=== PATIENT | female | born 1975 | race Two or more races ===

== ENCOUNTER 2024-12-01 11:34 | Outpatient (REF) | payer OTHER, SELFPAY ==
--- NOTE | ~2024-12-01 | XR_ITS ---
EXAMINATION: XR SHOULDER, RIGHT CLINICAL INFORMATION: AP INTERNAL/EXTERNAL ROTATION,OUTLET VIEW,GRASHEY REVIEW, STRAIN OF MUSCLE COMPARISON: None available. TECHNIQUE: AP external rotation, Grashey, scapular Y, and axillary views of the right shoulder. FINDINGS: No acute cortical disruption or malalignment. No lytic or blastic lesions. Preservation of the joint spaces. XR/XR shoulder RT min 2V IMPRESSION: No acute fracture or dislocation. Negative exam. Electronically signed by: [place] Robles MD 12/01/2024 12:45 PM EDT
--- NOTE | ~2024-12-01 | XR_ITS ---
EXAMINATION: XR CERVICAL SPINE CLINICAL INFORMATION: AP/LAT/OBLIQUES, NECK AND RU EXTREMITY PAIN, RADICULOPATHY COMPARISON: None available. TECHNIQUE: 6 views of the cervical spine, inclusive of flexion and extension views, were obtained. FINDINGS: Craniocervical junction is intact. No acute cortical disruption.. Small marginal osteophyte formation in the anterior C5-6. Grade 1 retrolisthesis C5-6. No lytic or blastic lesion. Upper airway is patent. 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 Electronically signed by: [place] Robles MD 12/01/2024 12:45 PM EDT
--- OUTSIDE RECORDS SUMMARY | 2024-12-01 12:06 | XMS_ITS | Encounter Summary ---
Author Organization [facility] Address [address] [place] [address] Care Team Providers Care Pipe Cleaning Machine Operator Name Role Phone Seth Strauss MD Unavailable [phone] Shaheen Mcgregor MD Primary Care Provider Unavailab le Unknown Pcp, Non [facility] Primary Care Provider Unava ilable Encounter Details Date Type Department Care Team (Late st Contact Info) Description 09/01/2016 Orders Only [facility] [address] [place] [id number] Lillie Simpson MD [address] [place] [id number] Social History Tobacco Use Types Packs/Day Years Used Date Smoking Tobacco: Never Smokeless Tobacco: Never Alcohol Use Standard Drinks/Week Comments No 0 (1 standard drink = 0.6 oz pur e alcohol) Comments No Sex and Gender Information Value Date Recorded Sex Assigned at Not on file Legal Sex Female 1:07 AM EDT Gender Identity Not on file Sexual Orientation Not on file 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 Procedure Name Priority Date/Time Associated Diagnosis Comments CULTURE, URINE, ROUTINE Routine 09/01/2016 12:17 PM EST Urinary frequency VITAMIN D, 25-HYDROXY, TOTAL, IMMUNOASSAY Routine 09/01/2016 10:57 AM EST Hip pain, bilateral URINALYSIS, DIP ONLY STAT (All results called to provider) 09/01/2016 10:57 AM EST Urinary frequency URINALYSIS, MICROSCOPIC WITH REFLEX CULTURE STAT (All results called to provider) 09/01/2016 10:57 AM EST RHEUMATOID FACTOR, SERUM Routine 09/01/2016 10:54 AM EST Hip pain, bilateral documented in this encounter Results * Due to [place] state law, this organization might not be sharing negative HIV tests. * (ABNORMAL) CULTURE, URINE, ROUTINE (09/01/2016 12:17 PM EST) [place] count (Urine) >10,000-<50,00 0 CFU/ml [facility] Bacteria culture (Urine) Mixed Culture, 3 or more organisms present. Repeat if Clinically Indicated.(A) No Growth [facility] 09/01/2016 12:1 7 PM EST 09/01/2016 12:17 PM EST Narrative [facility] - 09/04/2016 9:01 AM EST Patient's primary care provider is: ??N/A Testing performed at: [facility], [address] [place] [address], [id number], Computer Repair Instructor: Chepe Lopez M.D. Lillie Simpson MD LABORATORY Final Resul t [address] [address] DIRECTOR CHEPE LOPEZ M.D. * (ABNORMAL) URINALYSIS, MICROSCOPIC WITH REFLEX CULTURE (09/01/2016 10:57 AM EST) WBC (Urine) NONE SEEN NONE SEEN /HPF [facility] RBC (Urine Sed) 10-15(A) NONE SEEN /HPF [facility] Epithelial cells (Urine sed) FEW NONE SEEN /LPF [facility] Casts (Urine sed) NONE SEEN NONE SEEN /LPF [facility] Crystals (Urine sed) NONE SEEN NONE SEEN /HPF [facility] Bacteria (Urine) TRACE(A) NONE SEEN /HPF [facility] Microscopic observation (Urine sed) MUCOUS /HPF [facility] 09/01/2016 10:5 7 AM EST 09/01/2016 10:57 AM EST Narrative [facility] - 09/01/2016 11:31 AM EST Patient's primary care provider is: ??N/A STAT results called to POOL on 09/01/2016 at 11:31 AM by LIZ. Testing performed at: [facility], [address] [place] [address], [id number], Computer Repair Instructor: Chepe Lopez M.D. Lillie Simpson MD LABORATORY Final Resul t Performing Organization Address [facility] de Phone Number [address] [address] DIRECTOR CHEPE LOPEZ M.D. * (ABNORMAL) VITAMIN D, 25-HYDROXY, TOTAL, IMMUNOASSAY (09/01/2016 10:57 AM EST) VIT D, 25-OH, TOTAL 23(L) >29 ng/mL [facility] Comment: Vitamin D Status ??25-OH Vitamin D: Deficiency: ? <20 ng/mL Insufficiency: ? 20-29 ng/mL Optimal: ?> or = 30 ng/mL 09/01/2016 10:5 7 AM EST 09/01/2016 10:57 AM EST Narrative [facility] - 09/01/2016 12:48 PM EST Patient's primary care provider is: ??N/A Testing performed at: [facility], [address] [place] [address], [id number], Computer Repair Instructor: Chepe Lopez M.D. us Lillie Simpson MD LABORATORY Final Resul t Performing Organization Address [facility] de Phone Number [address] [address] DIRECTOR CHEPE LOPEZ M.D. * (ABNORMAL) URINALYSIS, DIP ONLY ( SITE STAT ONLY) (09/01/2016 10:57 AM EST) Color (Urine) Yellow Yellow [facility] Clarity (Urine) Clear Clear [facility] Glucose (Urine) Negative Negative [facility] Bilirubin (Urine) Negative Negative [facility] Ketones (Urine) Trace(A) Negative [facility] Specific gravity (Urine) 1.025 1.005 - 1.030 [facility] Erythrocytes (Urine) 2+(A) Negative [facility] pH (Urine) 5.5 5.0 - 8.0 [facility] Protein (Urine) Negative Negative [facility] Urobilinogen (Urine) 0.2 E.U./dL 0.0 - 1.0 EU/dl [facility] Nitrite (Urine) Negative Negative [facility] Leukocyte esterase (Urine) Negative Negative [facility] Urine specimen (specimen) 09/01/2016 10:57 AM EST 09/01/2016 10:57 AM EST Narrative [facility] - 09/01/2016 11:13 AM EST Patient's primary care provider is: ??N/A STAT results called to POOL on 09/01/2016 at 11:13 AM by LIZ. Source: Urine Testing performed at: [facility], [address] [place] [address], [id number], Computer Repair Instructor: Chepe Lopez M.D. us Lillie Simpson MD LAB SAME DAY RESULT Final R esult [address] [address] DIRECTOR CHEPE LOPEZ M.D. * RHEUMATOID FACTOR, SERUM (09/01/2016 10:54 AM EST) Rheumatoid Factor (Quant) 10 <14 IU/mL [facility] 09/01/2016 10:5 4 AM EST 09/01/2016 3:39 PM EST Narrative Resulting Agency Comment [id number] Lillie Simpson MD LABORATORY Final Resul t [facility] [address] [place] [address] documented in this encounter Visit Diagnoses Diagnosis Urinary frequency Hip pain, bilateral Pain in joint, pelvic region and thigh documented in this encounter Care Teams Pipe Cleaning Machine Operator Relationship Specialty Start Date End Date Shaheen Mcgregor MD PCP - General Family Medicine 12/10/15 09/07/21 Unknown Pcp, Non [facility] [place] - General 09/08/21 Seth Strauss MD 12/12/14 documented as of this encounter
--- OUTSIDE RECORDS SUMMARY | 2024-12-01 12:07 | XMS_ITS | Encounter Summary ---
Author Organization [facility] Address [address] [place] [address] Care Team Providers Care President & Founder Name Role Phone Seth Strauss MD Primary Care Provider [phone] Seth Strauss MD Unavailable [phone] Shaheen Mcgregor MD Primary Care Provider Unavailab le Unknown Pcp, Non [facility] Primary Care Provider Unava ilable Encounter Details Date Type Department Care Team (Late st Contact Info) Description 06/25/2015 Orders Only [facility] [address] [place] [phone] Seth Strauss MD [place]/[address] [address] Social History Tobacco Use Types Packs/Day Years Used Date Smoking Tobacco: Never Smokeless Tobacco: Never Alcohol Use Standard Drinks/Week Comments No 0 (1 standard drink = 0.6 oz pur e alcohol) Comments No Sex and Gender Information Value Date Recorded Sex Assigned at Not on file Legal Sex Female 1:07 AM EDT Gender Identity Not on file Sexual Orientation Not on file documented as of this encounter Plan of Treatment Not on file documented as of this encounter Visit Diagnoses Not on filedocumented in this encounter Care Teams President & Founder Relationship Specialty Start Date End Date Seth Strauss MD PCP - General Internal Medicine 12/12/14 12/09/15 Shaheen Mcgregor MD PCP - General Family Medicine 12/10/15 09/07/21 Unknown Pcp, Non [facility] PCP - General 09/08/21 Seth Strauss MD 12/12/14 documented as of this encounter
--- OUTSIDE RECORDS SUMMARY | 2024-12-01 12:07 | XMS_ITS | Encounter Summary ---
Author Organization [facility] Address [address] [place] [address] Care Team Providers Care Powertrain Engineer Name Role Phone Seth Strauss MD Unavailable [phone] Shaheen Mcgregor MD Primary Care Provider Unavailab le Unknown Pcp, Non [facility] Primary Care Provider Unava ilable Encounter Details Date Type Department Care Team (Late st Contact Info) Description 06/08/2017 Orders Only [address] [address] Shaheen Mcgregor MD Social History Tobacco Use Types Packs/Day Years [...] of this encounter Procedures * Due to [place] state law, this organization might not be sharing negative HIV tests. Procedure Name Priority Date/Time Associated Diagnosis Comments STREP GROUP A AG, RAPID, WITHOUT REFLEX (OBTAIN IN [facility] LAB ONLY!!!) Routine 06/08/2017 2:37 PM EST Left cervical lymphadenopathy MONONUCLEOSIS SCREEN (HETEROPHILE) Routine 06/08/2017 2:37 PM EST Left cervical lymphadenopathy CBC INCLUDES DIFFERENTIAL AND PLATELET COUNT Routine 06/08/2017 2:37 PM EST Left cervical lymphadenopathy documented in this encounter Results * Due to [place] state law, this organization might not be sharing negative HIV tests. * STREP GROUP A AG, RAPID, WITHOUT REFLEX (OBTAIN IN [facility] LAB ONLY!!!) (06/08/2017 2:37 PM EST) Streptococcus pyogenes Ag (Throat) Negative for Gr A NEG FOR GR. A STREP [facility] 06/08/2017 2:37 PM EST 06/08/2017 2:37 PM EST Narrative [facility] - 06/08/2017 3:00 PM EST non fasting Patient's primary care provider is: ??N/A Testing performed at: [facility], [address] [place] [address], [id number], Architect Naval: Chepe Lopez M.D. Shaheen Mcgregor MD LAB SAME DAY RESULT Final Result Performing Organization Address [facility] de Phone Number [address] [address] DIRECTOR CHEPE LOPEZ M.D. * MONONUCLEOSIS SCREEN (HETEROPHILE) (06/08/2017 2:37 PM EST) MONOTEST Negative Negative [facility] 06/08/2017 2:37 PM EST 06/08/2017 2:37 PM EST Narrative [facility] - 06/08/2017 3:34 PM EST non fasting Patient's primary care provider is: ??N/A Testing performed at: [facility], [address] [place] [address], [address], Architect Naval: Chepe Lopez M.D. Shaheen Mcgregor MD LAB SAME DAY RESULT Final Result Performing Organization Address [facility] de Phone Number [address] [address] DIRECTOR CHEPE LOPEZ M.D. * (ABNORMAL) CBC INCLUDES DIFFERENTIAL AND PLATELET COUNT (06/08/2017 2:37 PM EST) WBC 6.1 3.8 - 10.8 K/uL [facility] Neutrophils # 2.8 1.5 - 7.8 K/uL [facility] Immature Granulocytes # 0.01 0.00 - 0.07 K/uL [facility] Comment:Cells included in IM M GRANS # : Metamyelocytes, Myelocytes and Promyelocytes. Lymphocytes # 2.4 0.9 - 3.9 K/uL [facility] Monocytes # 0.8 0.2 - 1.0 K/uL [facility] Eosinophils # 0.1 0.0 - 0.5 K/uL [facility] Basophils # 0.0 0.0 - 0.2 K/uL [facility] Neutrophils % 46.1 % [facility] Immature Granulocytes % 0.20 % [facility] Comment:Cells included in IM M GRANS % : Metamyelocytes, Myelocytes and Promyelocytes. Lymphocytes % 39.8 % [facility] Monocytes % 12.6 % [facility] Eosinophils % 1.0 % [facility] Basophils % 0.3 % [facility] RBC 5.09 3.80 - 5.10 M/uL [facility] Hemoglobin 13.1 11.7 - 15.5 g/dL [facility] Hematocrit 40.6 35.0 - 45.0 % [facility] MCV 79.8(L) 80.0 - 100.0 fl [facility] MCH 25.7(L) 27.0 - 33.0 pg [facility] MCHC 32.3 32.0 - 36.0 g/dL [facility] RDW 15.7(H) 11.0 - 15.0 % [facility] PLT 265 140 - 400 K/uL [facility] 06/08/2017 2:37 PM EST 06/08/2017 2:37 PM EST Narrative [facility] - 06/08/2017 3:25 PM EST non fasting Patient's primary care provider is: ??N/A Testing performed at: [facility], [address] [place], [address], Architect Naval: Chepe Lopez M.D. Shaheen Mcgregor MD LAB SAME DAY RESULT Final Result Performing Organization Address City/State/[facility] de Phone Number [address] [address] DIRECTOR CHEPE LOPEZ M.D. documented in this encounter Visit Diagnoses Diagnosis Left cervical lymphadenopathy Enlargement of lymph nodes documented in this encounter Care Teams Powertrain Engineer Relationship Specialty Start Date End Date Shaheen Mcgregor MD PCP - General Family Medicine 12/10/15 09/07/21 Unknown Pcp, Non [facility] [place] PCP - General 09/08/21 Seth Strauss MD 12/12/14 documented as of this encounter
--- OUTSIDE RECORDS SUMMARY | 2024-12-01 12:07 | XMS_ITS | Encounter Summary ---
Author Organization [facility] Address [address] [place] [address] Care Team Providers Care Interior Designer Name Role Phone Seth Strauss MD Unavailable [phone] Shaheen Mcgregor MD Primary Care Provider Unavailab le Unknown Pcp, Non [facility] Primary Care Provider Unava ilable Encounter Details Date Type Department Care Team (Late st Contact Info) Description 09/08/2018 Orders Only [facility] LIME SPREADER [address] [place] [phone] Henry Engle MD [address] [place] [phone] Social History Tobacco Use Types Packs/Day Years [...] on file documented as of this encounter Progress Notes * Kalli Pereyra LPN - 09/12/2018 3:43 PM EST Normal test result note sent to [facility]. * Kalli Pereyra LPN - 09/08/2018 2:38 PM EST Sent to MD for review. Pt had her US today. Will inform pt of all results at the same time. documented in this encounter Miscellaneous Notes * Letter - Henry Engle MD - 09/08/2018 12:59 PM EST Sep 08, 2018 Manju [id number] [address] [facility], [address] Dear Manju ENGLE MD has ordered the following lab tests: CBC INCLUDES DIFFERENTIAL AND PLATELET COUNT Lab test THYROID STIMULATING HORMONE (TSH) WITH FREE T4 REFLEX, SERUM The results of this testing will help us monitor you more closely. You may have these tests performed at any of the [facility] labs, anytime during the hours of normal operation. A specific appointment day or time is no longer required. Please bring this letter with you to the lab. Please have these labs completed as soon as possible. Note that to the extent you have not had these labs completed after a period of 18 months, the orders will be canceled, in which case you should follow up with your healthcare provider(s) if you have questions. If you have recently been to the laboratory and had these studies performed, please disregard this letter. Sincerely, [facility] documented in this encounter Plan of Treatment Not on file documented as of this encounter Procedures * Due to [place] state law, this organization might not be sharing negative HIV tests. Procedure Name Priority Date/Time Associated Diagnosis Comments CBC INCLUDES DIFFERENTIAL AND PLATELET COUNT Routine 09/08/2018 10:45 AM EST Menorrhagia with regular cycle HCG, TOTAL, QL Routine 09/08/2018 10:45 AM EST Menorrhagia with regular cycle THYROID STIMULATING HORMONE (TSH) WITH FREE T4 REFLEX, SERUM Routine 09/08/2018 10:45 AM EST Menorrhagia with regular cycle documented in this encounter Results * Due to [place] state law, this organization might not be sharing negative HIV tests. * (ABNORMAL) CBC INCLUDES DIFFERENTIAL AND PLATELET COUNT (09/08/2018 10:45 AM EST) WBC 7.7 3.8 - 10.8 K/uL [facility] Neutrophils # 4.1 1.5 - 7.8 K/uL [facility] Immature Granulocytes # 0.0 0.0 - 0.1 K/uL [facility] Lymphocytes # 2.9 0.9 - 3.9 K/uL [facility] Monocytes # 0.6 0.2 - 1.0 K/uL [facility] Eosinophils # 0.1 0.0 - 0.5 K/uL [facility] Basophils # 0.0 0.0 - 0.2 K/uL [facility] Neutrophils % 53.2 % [facility] Immature Granulocytes % 0.10 % [facility] Lymphocytes % 37.1 % [facility] Monocytes % 8.0 % [facility] Eosinophils % 1.3 % [facility] Basophils % 0.3 % [facility] RBC 4.86 3.80 - 5.10 M/uL [facility] Hemoglobin 12.5 11.7 - 15.5 g/dL [facility] Hematocrit 39.7 35.0 - 45.0 % [facility] MCV 81.7 80.0 - 100.0 fl [facility] MCH 25.7(L) 27.0 - 33.0 pg [facility] MCHC 31.5(L) 32.0 - 36.0 g/dL [facility] RDW 14.9 11.0 - 15.0 % [facility] PLT 266 140 - 400 K/uL [facility] 09/08/2018 10:4 5 AM EST 09/08/2018 10:45 AM EST Narrative [facility] - 09/08/2018 11:38 AM EST non fasting Patient's primary care provider is: ??N/A Testing performed at: [facility], [address] [place] [address], [address], Administrative Specialist: Seth Vang MD Henry Engle MD LAB SAME DAY RESULT Fin al Result Performing Organization Address [facility] Co de Phone Number [address] [address] DIRECTOR Seth Vang MD * THYROID STIMULATING HORMONE (TSH) WITH FREE T4 REFLEX, SERUM (09/08/2018 10:45 AM EST) TSH (Thyrotropin) 1.17 0.40 - 4.50 uIU/ml [facility] 09/08/2018 10:4 5 AM EST 09/08/2018 10:45 AM EST Narrative [facility] - 09/08/2018 1:41 PM EST non fasting Patient's primary care provider is: ??N/A Testing performed at: [facility], [address] [place] [address], [address], Administrative Specialist: Seth Vang MD us Henry Engle MD LABORATORY Final R esult Performing Organization Address [facility] de Phone Number [address] [address] DIRECTOR Seth Vang MD * HCG, TOTAL, QL (09/08/2018 10:45 AM EST) HCG, Qualitative (Screen) Negative Negative [facility] 09/08/2018 10:4 5 AM EST 09/08/2018 10:45 AM EST Narrative [facility] - 09/08/2018 1:53 PM EST non fasting Patient's primary care provider is: ??N/A Testing performed at: [facility], [address] [place] [address], [address], Administrative Specialist: Seth Vang MD us Henry Engle MD LAB SAME DAY RESULT Fin al Result Performing Organization Address [facility] Co de Phone Number [address] [place] [address] DIRECTOR Seth Vang MD documented in this encounter Visit Diagnoses Diagnosis Menorrhagia with regular cycle Excessive or frequent menstruation documented in this encounter Care Teams Interior Designer Relationship Specialty Start Date End Date Shaheen Mcgregor MD PCP - General Family Medicine 12/10/15 09/07/21 Unknown Pcp, Non [facility] PCP - General 09/08/21 Seth Strauss MD 12/12/14 documented as of this encounter
--- OUTSIDE RECORDS SUMMARY | 2024-12-01 12:07 | XMS_ITS | Encounter Summary ---
Author Organization [facility] Address [address] [place] [address] Care Team Providers Care Homicide Detective Name Role Phone Seth Strauss MD Unavailable [phone] Shaheen Mcgregor MD Primary Care Provider Unavailab le Unknown Pcp, Non [facility] Primary Care Provider Unava ilable Reason for Referral * OUTPT PROCEDURES AND DIAGNOSTICS (Routine) - New Request Specialty Diagnoses / Procedures Referred By Prince shultz Referred To Contact Ultrasound Diagnoses Mass of left side of neck Left neck mass, presumably lymph node. No improvement with antibiotics. Procedures REQUEST FOR ULTRASOUND NON-FC NECK ULTRASOUND Shaheen Mcgregor MD [facility] Referral ID Status Reason Start Date Expiration Date Visits Requested Visits Authorized [id number] New Request Specialty Services Required 7 1 1 Encounter Details Date Type Department Care Team (Late st Contact Info) Description 06/24/2017 Orders Only [facility] Adult Medicine [address] [place] [phone] Shaheen Mcgregor MD Social History Tobacco Use [...] as of this encounter Plan of Treatment Scheduled Orders Name Type Priority Associated Diagnoses Orde r Schedule REQUEST FOR ULTRASOUND NON-FC Imaging Routine Mass of left side of neck Ordered: 06/24/2017 documented as of this encounter Visit Diagnoses Diagnosis Mass of left side of neck Swelling, mass, or lump in head and neck documented in this encounter Care Teams Homicide Detective Relationship Specialty Start Date End Date Shaheen Mcgregor MD PCP - General Family Medicine 12/10/15 09/07/21 Unknown Pcp, [place] [facility] [place] - General 09/08/21 Seth Strauss MD 12/12/14 documented as of this encounter
--- OUTSIDE RECORDS SUMMARY | 2024-12-01 12:07 | XMS_ITS | Encounter Summary ---
Author Organization [facility] Address [address] [place] [address] Care Team Providers Care Medical Technologist Prn Name Role Phone Seth Strauss MD Unavailable [phone] Shaheen Mcgregor MD Primary Care Provider Unavailab le Unknown Pcp, Non [facility]mg Primary Care Provider Unava ilable Encounter Details Date Type Department Care Team (Late st Contact Info) Description 05/28/2017 Orders Only [address] [address] Shaheen Mcgregor MD Social History Tobacco Use [...] Procedure Name Priority Date/Time Associated Diagnosis Comments EKG-TO BE READ & BILLED BY ADULT OR PEDIATRIC CARDIOLOGY Routine 05/28/2017 9:43 AM EDT Atypical chest pain CBC (H/H, RBC, INDICES,WBC, PLT) Routine 05/28/2017 7:53 AM EDT Screening for deficiency anemia LIPID PANEL WITH REFLEX TO DIRECT LDL Routine 05/28/2017 7:53 AM EDT Screening for lipid disorders BASIC METABOLIC PANEL WITH (GFR) Routine 05/28/2017 7:53 AM EDT Screening for diabetes mellitus documented in this encounter Results * Due to [place] state law, this organization might not be sharing negative HIV tests. * EKG-TO BE READ AND BILLED BY CARDIOLOGY (05/28/2017 9:43 AM EDT) VENTRICULAR RATE 84 BPM MUS E EKG SYSTEM ATRIAL RATE 84 BPM MUSE EKG SYSTEM P-R INTERVAL 108 ms MUSE EK G SYSTEM QRS DURATION 76 ms MUSE EK G SYSTEM QT 364 ms MUSE EKG SYSTEM QTC 430 ms MUSE EKG SYSTEM P AXIS 29 degrees MUSE EKG SYSTEM R AXIS 49 degrees MUSE EKG SYSTEM T AXIS 31 degrees MUSE EKG SYSTEM EKG INTERPRETATION Sinus rhythm with sinus arrhythmia with short FL Otherwise normal ECG No previous ECGs available MUSE EKG SYSTEM 05/28/2017 9:43 AM EDT 05/31/2017 7:56 AM EST us Shaheen Mcgregor MD CARDIOVASCULAR-WITH INBSKT RTG F inal Result MUSE EKG SYSTEM * (ABNORMAL) CBC (H/H, RBC, INDICES,WBC, PLT) (05/28/2017 7:53 AM EDT) WBC 6.6 3.8 - 10.8 K/uL [facility] RBC 5.12(H) 3.80 - 5.10 M/uL [facility] Hemoglobin 13.3 11.7 - 15.5 g/dL [facility] Hematocrit 41.1 35.0 - 45.0 % [facility] MCV 80.3 80.0 - 100.0 fl [facility] MCH 26.0(L) 27.0 - 33.0 pg [facility] MCHC 32.4 32.0 - 36.0 g/dL [facility] RDW 16.4(H) 11.0 - 15.0 % [facility] PLT 241 140 - 400 K/uL [facility] 05/28/2017 7:53 AM EDT 05/28/2017 7:53 AM EDT Narrative [facility] - 05/28/2017 9:16 AM EDT fasting Patient's primary care provider is: ??N/A Testing performed at: [facility], [address] [place] [address], [id number], [employer] Consultant: Chepe Lopez M.D. Shaheen Mcgregor MD LAB SAME DAY RESULT Final Result Performing Organization Address [facility] de Phone Number [address] [address] DIRECTOR CHEPE LOPEZ M.D. * BASIC METABOLIC PANEL WITH (GFR) (05/28/2017 7:53 AM EDT) Pathologist [facility] Glucose 91 65 - 99 mg/dl [facility] Urea Nitrogen Blood (BUN) 11 7 - 25 mg/dL [facility] Creatinine 0.81 0.50 - 1.16 mg/dL [facility] Sodium 143 136 - 145 mmo/L [facility] Potassium 4.8 3.5 - 5.3 mmol/L [facility] Chloride 103 98 - 107 mmo/L [facility] Carbon dioxide 27 23 - 33 mmol/L [facility] Calcium 9.6 8.5 - 10.4 mg/dL [facility] GFR 83 >60 ml/min [facility] Comment:If the patient is Af rican [place], please multiply result by 1.210 05/28/2017 7:53 AM EDT 05/28/2017 7:53 AM EDT Narrative [facility] - 05/28/2017 10:32 AM EDT fasting Patient's primary care provider is: ??N/A Testing performed at: [facility], [address] [place] [address], [id number], [employer] Consultant: Chepe Lopez M.D. Shaheen Mcgregor MD LABORATORY Final Result Performing Organization Address [facility] Co de Phone Number [address] [address] DIRECTOR CHEPE LOPEZ M.D. * LIPID PANEL WITH REFLEX TO DIRECT LDL (05/28/2017 7:53 AM EDT) Cholesterol 189 <200 mg/dL [facility] Triglyceride 66 <150 mg/dL [facility] HDL Cholesterol 57 >40 mg/dL [facility] Comment: NCEP GUIDELINES Desireable >60 mg/dL Borderline 40-59 mg/dL ?? Undesirable <40 mg/dL LDL Cholesterol 119 <130 mg/dL [facility] CHOL/HDL Ratio 3 0 - 5 CALC [facility] 05/28/2017 7:53 AM EDT 05/28/2017 7:53 AM EDT Narrative [facility] - 05/28/2017 10:32 AM EDT fasting Patient's primary care provider is: ??N/A Testing performed at: [facility], [address] [place] [address], [address], [employer] Consultant: Chepe Lopez M.D. Shaheen Mcgregor MD LABORATORY Final Result Performing Organization Address City/State/[facility] Co de Phone Number [address] [address] DIRECTOR CHEPE LOPEZ M.D. documented in this encounter Visit Diagnoses Diagnosis Screening for lipid disorders Screening for diabetes mellitus Screening for deficiency anemia Screening for other and unspecified deficiency anemia Atypical chest pain Other chest pain documented in this encounter Care Teams Medical Technologist Prn Relationship Specialty Start Date End Date Shaheen Mcgregor MD PCP - General Family Medicine 12/10/15 09/07/21 Unknown Pcp, Non g PCP - General 09/08/21 Seth Strauss MD 12/12/14 documented as of this encounter
--- OUTSIDE RECORDS SUMMARY | 2024-12-01 12:07 | XMS_ITS | Encounter Summary ---
Author Organization [facility] Address [address] [place] [address] Care Team Providers Care Inspector Plating Name Role Phone Seth Strauss MD Unavailable [phone] Shaheen Mcgregor MD Primary Care Provider Unavailab le Unknown Pcp, Non [facility]mg Primary Care Provider Unava ilable Encounter Details Date Type Department Care Team (Late st Contact Info) Description 08/23/2018 Orders Only [facility] SUPERVISOR EDGING [address] [place] [phone] Henry Engle MD [address] [place] [phone] Social History Tobacco Use Types Packs/Day [...] Progress Notes * Kalli Pereyra LPN - 08/29/2018 4:55 PM EST Normal pap letter sent to pt, problem list updated. documented in this encounter Plan of Treatment Not on file documented as of this encounter Procedures * Due to [place] state law, this organization might not be sharing negative HIV tests. Procedure Name Priority Date/Time Associated Diagnosis Comments THINPREP TIS PAP, HPV MRNA E6/E7 RFX HPV 16,18/45, CT/NG Routine 08/23/2018 5:11 PM EST Cervical cancer screening Family planning advice documented in this encounter Results * Due to [facility] law, this organization might not be sharing negative HIV tests. * THINPREP TIS PAP, HPV MRNA E6/E7 RFX HPV 16,18/45, CT/NG (08/23/2018 5:11 PM EST) Clinical information None given [facility] Date last menstrual period NONE GIVEN [facility] Date of previous PAP smear NONE GIVEN [facility] Date of previous biopsy NONE GIVEN [facility] Specimen source (Cvx/Vag) Vagina, Cervix, Endocervix [facility] Statement of Adequacy (Cvx/Vag) Satisfactory for evaluation. Endocervical/sánchez sformation zone component present. Age and/or menstrual status not provided [facility] Cytology, Pap Smear Negative for intraepithelial lesion or malignancy. [facility] Cytology study comment (Cvx/Vag) This Pap test has been evaluated with computer assisted technology. [facility] Formulation Scientist (Cvx/Vag) [facility] CT screening location: [place] [address] [facility] Formulation Scientist (Cvx/Vag) [place], CT(ASCP) CT screening location: [place] [address] [facility] COMMENT SEE NOTE [facility] Comment: EXPLANATORY NOTE: The Pap is a screening test for cervical cancer. It is not a diagnostic test and is subject to false negative and false positive results. It is most reliable when a satisfactory sample, regularly obtained, is submitted with relevant clinical findings and history, and when the Pap result is evaluated along with historic and current clinical information. HPV MRNA E6/E7 Not Detected Not Detected [facility] Comment: This test was performed using the APTIMA HPV Assay ([employer] This assay detects E6/E7 viral messenger RNA (mRNA) from 14 high-risk HPV types (16,18,31,33,35,39,45,51,52,56,58,59,66,68). The analytical performance characteristics of this assay have been determined by [employer]. The modifications have not been cleared or approved by the FDA. This assay has been validated pursuant to the CLIA regulations and is used for clinical purposes. Chlamydia trachomatis rRNA NOT DETECTED NOT DETECTED [facility] Neisseria Gonorrhoeae rRNA NOT DETECTED NOT DETECTED [facility] COMMENT SEE NOTE [facility] Comment: This test was performed using the APTIMA COMBO2 Assay ([employer] The analytical performance characteristics of this assay, when used to test SurePath specimens have been determined by [employer]. 08/23/2018 5:11 PM EST 08/23/2018 10:14 PM EST Narrative Resulting Agency Comment [id number] Henry Engle MD PATHOLOGY-INTERFACED Fi nal Result Performing Organization Address City/State/[facility] Co de Phone Number [facility] [address] [place] [address] documented in this encounter Visit Diagnoses Diagnosis Cervical cancer screening Screening for malignant neoplasm of the cervix Family planning advice Other general counseling and advice for contraceptive management documented in this encounter Care Teams Inspector Plating Relationship Specialty Start Date End Date Shaheen Mcgregor MD PCP - General Family Medicine 12/10/15 09/07/21 Unknown Pcp, Non [facility] PCP - General 09/08/21 Seth Strauss MD 12/12/14 documented as of this encounter
--- OUTSIDE RECORDS SUMMARY | 2024-12-01 12:07 | XMS_ITS | Encounter Summary ---
Author Organization [facility] Address [address] [place] [address] Care Team Providers Care Rn Clinician Name Role Phone Seth Strauss MD Unavailable [phone] Shaheen Mcgregor MD Primary Care Provider Unavailab le Unknown Pcp, Non Rmg Primary Care Provider Unava ilable Encounter Details Date Type Department Care Team (Late st Contact Info) Description 05/19/2018 Orders Only [facility] Orthopedic Surgery [address] [place] [id number] Artem Cash MD Social History Tobacco Use Types Packs/Day Years Used Date Smoking Tobacco: Never Smokeless Tobacco: Never Alcohol Use Standard Drinks/Week Comments No 0 (1 standard drink = 0.6 oz pur e alcohol) Comments Unknown Sex and Gender Information Value Date Recorded [...] Type Priority Associated Diagnoses Orde r Schedule XRAY SHOULDER COMPLETE MIN 2 VWS- RIGHT (DX: SHOULDER PAIN *NO INJURY* M25.511/ 719.41) (TODAY) FC Imaging Routine Pain Expected: 05/19/2018 (Approximate), Expires: 05/19/2021 documented as of this encounter Visit Diagnoses Diagnosis Pain Generalized pain documented in this encounter Care Teams Rn Clinician Relationship Specialty Start Date End Date Shaheen Mcgregor MD PCP - General Family Medicine 12/10/15 09/07/21 Unknown Pcp, Non [facility] PCP - General 09/08/21 Seth Strauss MD 12/12/14 documented as of this encounter
--- OUTSIDE RECORDS SUMMARY | 2024-12-01 12:07 | XMS_ITS | Encounter Summary ---
Author Organization [facility] Address [address] [place] [address] Care Team Providers Care Waitstaff Name Role Phone Seth Strauss MD Unavailable [phone] Shaheen Mcgregor MD Primary Care Provider Unavailab le Unknown Pcp, Non Rmg Primary Care Provider Unava ilable Encounter Details Date Type Department Care Team (Late st Contact Info) Description 01/31/2016 Orders Only [address] [address] Shaheen Mcgregor MD Social History Tobacco Use [...] of this encounter Procedures * Due to [facility] law, this organization might not be sharing negative HIV tests. Procedure Name Priority Date/Time Associated Diagnosis Comments LIPID PANEL WITH REFLEX TO DIRECT LDL Routine 01/31/2016 8:25 AM EDT Hyperlipidemia, unspecified hyperlipidemia type documented in this encounter Results * Due to [facility] law, this organization might not be sharing negative HIV tests. * (ABNORMAL) LIPID PANEL WITH REFLEX TO DIRECT LDL (01/31/2016 8:25 AM EDT) Cholesterol 201(H) <200 mg/dL [facility] Triglyceride 63 <150 mg/dL [facility] HDL Cholesterol 57 >40 mg/dL [facility] Comment: NCEP GUIDELINES Desireable >60 mg/dL Borderline 40-59 mg/dL ?? Undesirable <40 mg/dL LDL Cholesterol 131(H) <130 mg/dL [facility] CHOL/HDL Ratio 4 0 - 5 CALC [facility] 01/31/2016 8:25 AM EDT 01/31/2016 8:25 AM EDT Narrative [facility] - 01/31/2016 11:12 AM EDT fasting Patient's primary care provider is: ??N/A Testing performed at: [facility], [address] [place] [address], [id number], Handle Assembler: Chepe Lopez M.D. Shaheen Mcgregor MD LABORATORY Final Result Performing Organization Address City/State/[facility] de Phone Number [address] [address] DIRECTOR CHEPE LOPEZ M.D. documented in this encounter Visit Diagnoses Diagnosis Hyperlipidemia, unspecified hyperlipidemia type documented in this encounter Care Teams Waitstaff Relationship Specialty Start Date End Date Shaheen Mcgregor MD PCP - General Family Medicine 12/10/15 09/07/21 Unknown Pcp, Non Rmg PCP - General 09/08/21 Seth Strauss MD 12/12/14 documented as of this encounter
--- OUTSIDE RECORDS SUMMARY | 2024-12-01 12:07 | XMS_ITS | Encounter Summary ---
Author Organization [facility] Address [address] [place] [address] Care Team Providers Care Practicing Urologist Name Role Phone Seth Strauss MD Unavailable [phone] Shaheen Mcgregor MD Primary Care Provider Unavailab le Unknown Pcp, Non Rmg Primary Care Provider Unava ilable Reason for Referral * PT/OT/ST (Routine) - Auth Not Needed Specialty Diagnoses / Procedures Referred By Prince shultz Referred To Contact Physical Therapy Diagnoses Right shoulder pain, unspecified chronicity Ryne Rivera DO [address] [place] [address] Phone: tel: fax: Referral ID Status Reason Start Date Expiration Date Visits Requested Visits Authorized [id number] Auth Not Needed Specialty Services Required 7 1 1 Question Answer What is the reason for this outside referral? EVALUATE AND TREAT Please provide pertinent patient history. Right shoulder pain Patient is being referred outside of [facility] for the following reason, however final determination for [id number] requests are made by the Referral Management Department [facility] not available [facility] Track Order? No When do you want this visit to occur? FIRST ROUTINE AVAILABLE Encounter Details Date Type Department Care Team (Late st Contact Info) Description 07/13/[address] [facility] Orthopedic Surgery [address] [place] [phone] Ryne Rivera DO [address] [place] [address] Social History Tobacco Use Types Packs/Day Years [...] of this encounter Plan of Treatment Scheduled Referrals Name Type Priority Associated Diagnoses Orde r Schedule CONSULT [facility] NON-FC Referral Routine Right shoulder pain, unspecified chronicity Ordered: 07/13/2017 documented as of this encounter Visit Diagnoses Diagnosis Right shoulder pain, unspecified chronicity documented in this encounter Care Teams Practicing Urologist Relationship Specialty Start Date End Date Shaheen Mcgregor MD PCP - General Family Medicine 12/10/15 09/07/21 Unknown Pcp, Non [facility] PCP - General 09/08/21 Seth Strauss MD 12/12/14 documented as of this encounter
--- OUTSIDE RECORDS SUMMARY | 2024-12-01 12:07 | XMS_ITS | Clinical Summary ---
Author Organization [facility] Address [address] [place] [address] Care Team Providers Care Radarman Name Role Phone Seth Strauss MD Unavailable [phone] Unknown Pcp, Non Rmg Primary Care Provider Unava ilable Allergies Active Allergy Reactions Criticality Noted Date Comments Orphenadrine Other 06/28/2017 Blurred vision Medications * This document contains information received from the source organization and may not represent a complete record from that organization. 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 Recommended Psychotherapy. History of positive PPD 01/25/2016 Fibroadenoma of right breast 01/25/2016 Hyperlipidemia 12/26/2014 Resolved Problems Problem Noted Date Diagnosed Date Resolved Date Mass of left side of neck 07/27/2017 Overview (07/27/2017): US showed normal lymph node. Node almost back to normal on 07/27/2017 Breast density 06/24/2015 05/28/2017 Immunizations Name Administration Dates Next Due COVID-19, mRNA (Moderna Pre Fall 2022) Monovalent, 100 mcg/0.5 ml or 50 mcg/0.25 ml dose 09/14/2020,08/25/2020 Influenza (SEASONAL) - 04/02/2018,05/30/2017,01/2016 Influenza,injectable,quad,Prsrv Fr 04/08/2020, Family History Medical History Relation Name Comments Cancer (?Type) Father Prostate Diabetes Father Hypertension Father Cancer - Colon Maternal grandmother Arthritis/Joint disorder Mother ? R A Hypertension Mother Relation Name Status Comments Father Alive dm2, prostate c ancer Maternal grandmother Mother Alive htn Social History Tobacco Use Types Packs/Day Years Used Date Smoking Tobacco: Never Smokeless Tobacco: Never Alcohol Use Standard Drinks/Week Comments No 0 (1 standard drink = 0.6 oz pur e alcohol) Intimate Partner Violence Answer Date R ecorded Fear of Current or Ex-Partner Not on file Emotionally Abused Not on file 03/16/2023 Physically Abused Not on file 03/16/2023 Sexually Abused Not on file 03/16/2023 Feel Safe at Home Not on file 03/16/2023 Comments No Sex and Gender Information Value Date Recorded Sex Assigned at Not on file Legal Sex Female 1:07 AM EDT Gender Identity Not on file Sexual Orientation Not on file 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 Not on file Not on file Last Filed Vital Signs Vital Sign Reading Time Taken Comments Blood Pressure 108/78 09/20/2018 9:11 AM EST Pulse 80 04/07/2018 10:46 AM EDT Temperature 37 ??C (98.6 ??F) 04/07/2018 10:46 AM EDT Respiratory Rate 16 10/16/2015 8:38 AM EDT Oxygen Saturation 100% 06/08/2017 2:07 PM EST Inhaled Oxygen Concentration - - Weight 58.5 kg (129 lb) 09/20/2018 9:11 AM EST Height 155.6 cm (5' 1.25 ) 08/23/2018 10:[address] Body Mass Index 24.18 08/23/2018 10:28 AM EST Plan of Treatment Health Maintenance Due Date Last Done Comments Hepatitis C Screening 1975 Hep B (1 of 3 - 19+ 3-dose series) 1994 Mammogram/Breast Imaging 05/12/2019 018, 06/22/2016, 06/22/2016, Additional history exists Pap Smear 08/23/2021 08/23/2018, 03/13/2015 COVID-19 Vaccine ( season) 2024 09/14/2020, 08/25/2020 Influenza (#1) 2024 04/08/2020, 02/2018, 05/30/2017, Additional history exists Zoster (Shingrix) (1 of 2) 2025 HPV Vaccine Aged Out No longer eligi ble based on patient's age to complete this topic Hep A Aged Out No longer eligi ble based on patient's age to complete this topic Hib Aged Out No longer eligi ble based on patient's age to complete this topic Meningococcal ACWY Aged Out No longer eligible based on patient's age to complete this topic Pneumococcal Aged Out No longer eligi ble based on patient's age to complete this topic Procedures * Due to [place] law, this organization might not be sharing negative HIV tests. Procedure Name Priority Date/Time Associated Diagnosis Comments THINPREP TIS PAP, HPV MRNA E6/E7 RFX HPV 16,18/45, CT/NG Routine 08/23/2018 5:11 PM EST Cervical cancer screening Family planning advice SCREENING MAMMOGRAPHY BILATERAL, 2 VIEWS EACH BREAST, INCLUDING CAD 05/12/2018 from Last 3 Months or Most Recently Relevant to Health Maintenance Results * Due to [place] law, this organization might not be sharing [...] evaluated with computer assisted technology. [facility] Recycling Technician (Cvx/Vag) MSM, CT(ASCP) CT screening location: [address] [address] [facility] Recycling Technician (Cvx/Vag) ALS, CT(ASCP) CT screening location: [address] [address] [facility] COMMENT SEE NOTE [facility] [...] was performed using the APTIMA HPV Assay ([employer] This assay detects E6/E7 viral messenger RNA (mRNA) from 14 high-risk HPV types (16,18,31,33,35,39,45,51,52,56,58,59,66,68). The analytical performance characteristics of this assay have been determined by [employer]. The modifications have not been cleared or approved by the FDA. This assay has been validated pursuant to the CLIA regulations and is used for clinical purposes. Chlamydia trachomatis rRNA NOT DETECTED NOT DETECTED [facility] Neisseria Gonorrhoeae rRNA NOT DETECTED NOT DETECTED [facility] COMMENT SEE NOTE [facility] Comment: This test was performed using the APTIMA COMBO2 Assay ([employer] The analytical performance characteristics of this assay, when used to test SurePath specimens have been determined by [employer]. 08/23/2018 5:11 PM EST 08/23/2018 10:14 PM EST Narrative Resulting Agency Comment [id number] Henry Engle MD PATHOLOGY-INTERFACED [facility] Result [facility] [address] [place] [address] * SCREENING MAMMOGRAPHY BILATERAL, 2 VIEWS EACH BREAST, INCLUDING CAD (05/12/2018) 05/12/2018 Shaheen Mcgregor MD GENERAL IMAGING- OTHER Final Res ult from Last 3 Months or Most Recently Relevant to Health Maintenance Insurance [facility] Care Teams Radarman Relationship Specialty Start Date End Date Unknown Pcp, Non [facility]mg PCP - General 09/08/21 Seth Strauss MD 12/12/14
--- OUTSIDE RECORDS SUMMARY | 2024-12-01 12:07 | XMS_ITS | Encounter Summary ---
Author Organization [facility] Address [address] [place] [address] Care Team Providers Care Furnace Cooler Name Role Phone Seth Strauss MD Primary Care Provider [phone] Seth Strauss MD Unavailable [phone] Shaheen Mcgregor MD Primary Care Provider Unavailab le Unknown Pcp, Non [facility] Primary Care Provider Unava ilable Encounter Details Date Type Department Care Team (Late st Contact Info) Description 01/22/2015 Orders Only [facility] [address] [place] [phone] Seth Strauss MD [place]/[address] [address] Social History Tobacco Use Types Packs/Day Years Used Date Smoking Tobacco: Never Alcohol Use Standard Drinks/Week Comments Yes 0 (1 standard drink = 0.6 oz pur e alcohol) Comments Unknown Sex and Gender Information Value Date Recorded Sex Assigned at Not on file Legal Sex Female 1:07 AM EDT Gender Identity Not on file Sexual Orientation Not on file documented as of this encounter Plan of Treatment Not on file documented as of this encounter Procedures * Due to [place] state law, this organization might not be sharing negative HIV tests. Procedure Name Priority Date/Time Associated Diagnosis Comments CBC (H/H, RBC, INDICES,WBC, PLT) Routine 01/22/2015 8:05 AM EDT Anemia, Unspecified Anemia Type TSH, 3RD GENERATION Routine 01/22/2015 8 :05 AM EDT Hyperlipidemia GLUCOSE (BLOOD) Routine 01/22/2015 8:05 AM EDT Hyperlipidemia LIPID PANEL WITH REFLEX TO DIRECT LDL Routine 01/22/2015 8:05 AM EDT Hyperlipidemia documented in this encounter Results * Due to [place] state law, this organization might not be sharing negative HIV tests. * (ABNORMAL) CBC (H/H, RBC, INDICES,WBC, PLT) (01/22/2015 8:05 AM EDT) WBC 7.7 3.8 - 10.8 K/uL [facility] RBC 5.04 3.80 - 5.10 M/uL [facility] Hemoglobin 13.4 11.7 - 15.5 g/dL [facility] Hematocrit 41.9 35.0 - 45.0 % [facility] MCV 83.1 80.0 - 100.0 fl [facility] MCH 26.6(L) 27.0 - 33.0 pg [facility] MCHC 32.0 32.0 - 36.0 g/dL [facility] RDW 14.6 11.0 - 15.0 % [facility] PLT 306 140 - 400 K/uL [facility] 01/22/2015 8:05 AM EDT 01/22/2015 8:05 AM EDT Narrative [facility] - 01/22/2015 11:10 AM EDT FASTING Patient's primary care provider is: ??N/A Testing performed at: [facility], [address] [place] [address], [id number], Connie Scratcher: Chepe Lopez M.D. us Seth Strauss MD LAB SAME DAY RESULT Final Re sult [address] [address] DIRECTOR CHEPE LOPEZ M.D. * GLUCOSE (BLOOD) (01/22/2015 8:05 AM EDT) Glucose 88 65 - 99 mg/dl [facility] 01/22/2015 8:05 AM EDT 01/22/2015 8:05 AM EDT [facility] - 01/22/2015 12:22 PM EDT FASTING Patient's primary care provider is: ??N/A Testing performed at: [facility], [address] [place] [address], [address], Connie Scratcher: Chpee Lopez M.D. Seth Strauss MD LAB SAME DAY RESULT Final Re sult Performing Organization Address [facility]/ZIP Co de Phone Number [address] [address] DIRECTOR CHEPE LOPEZ M.D. * (ABNORMAL) LIPID PANEL WITH REFLEX TO DIRECT LDL (01/22/2015 8:05 AM EDT) Cholesterol 223(H) <200 mg/dL [facility] Triglyceride 93 <150 mg/dL [facility] HDL Cholesterol 58 >40 mg/dL [facility] Comment: NCEP GUIDELINES Desireable >60 mg/dL Borderline 40-59 mg/dL ?? Undesirable <40 mg/dL LDL Cholesterol 147(H) <130 mg/dL [facility] CHOL/HDL Ratio 4 0 - 5 CALC [facility] 01/22/2015 8:05 AM EDT 01/22/2015 8:05 AM EDT [facility] - 01/22/2015 12:22 PM EDT FASTING Patient's primary care provider is: ??N/A Testing performed at: [facility], [address] [place] [address], [address], Connie Scratcher: Chepe Lopez M.D. Seth Strauss MD LABORATORY Final Result Performing Organization Address [facility]/ZIP Co de Phone Number [address] [address] DIRECTOR CHEPE LOPEZ M.D. * TSH, 3RD GENERATION (01/22/2015 8:05 AM EDT) TSH (Thyrotropin) 2.33 0.40 - 4.50 uIU/ml [facility] 01/22/2015 8:05 AM EDT 01/22/2015 8:05 AM EDT Narrative [facility] - 01/22/2015 12:22 PM EDT FASTING Patient's primary care provider is: ??N/A Testing performed at: [facility], [address] [place] [address], [address], Connie Scratcher: Chepe Lopez M.D. Seth Strauss MD LABORATORY Final Result [address] [address] DIRECTOR CHEPE LOPEZ M.D. documented in this encounter Visit Diagnoses Diagnosis Hyperlipidemia Other and unspecified hyperlipidemia Anemia, unspecified anemia type documented in this encounter Care Teams Furnace Cooler Relationship Specialty Start Date End Date Seth Strauss MD PCP - General Internal Medicine 12/12/14 12/09/15 Shaheen Mcgregor MD PCP - General Family Medicine 12/10/15 09/07/21 Unknown Pcp, Non [facility] PCP - General 09/08/21 Seth Strauss MD 12/12/14 documented as of this encounter
--- OUTSIDE RECORDS SUMMARY | 2024-12-01 12:07 | XMS_ITS | Encounter Summary ---
Author Organization [facility] Address [address] [place] [address] Care Team Providers Care Refrigerated Cargo Clerk Name Role Phone Seth Strauss MD Primary Care Provider [phone] Seth Strauss MD Unavailable [phone] Shaheen Mcgregor MD Primary Care Provider Unavailab le Unknown Pcp, Non [facility] Primary Care Provider Unava ilable Reason for Referral * OUTPT PROCEDURES AND DIAGNOSTICS (14 Days) - Closed Specialty Diagnoses / Procedures Referred By Contac t Referred To Contact Mammography Diagnoses Abnormal mammogram right breast architectural disortion Procedures REQUEST FOR DIAGNOSTIC MAMMOGRAM - NON FC REQUEST FOR US BREAST - NON FC Additional views and us right breast Seth Strauss MD Phone: tel: fax: [facility] [address] [place] [address] Phone: tel: fax: Referral ID Status Reason Start Date Expiration Date V isits Requested Visits Authorized [id number] Closed Specialty Services Required 05/23/2015 05/23/2016 1 1 Encounter Details Date Type Department Care Team (Late st Contact Info) Description 05/23/2015 Orders Only [facility] [address] [place] [phone] Seth Strauss MD [place]/[address] [address] Social History Tobacco Use Types Packs/Day Years [...] Associated Diagnoses Orde r Schedule REQUEST FOR DIAGNOSTIC MAMMOGRAM - NON FC Imaging Routine Abnormal mammogram Ordered: 05/23/2015 documented as of this encounter Visit Diagnoses Diagnosis Abnormal mammogram- Primary Abnormal mammogram, unspecified documented in this encounter Care Teams Refrigerated Cargo Clerk Relationship Specialty Start Date End Date Seth Strauss MD PCP - General Internal Medicine 12/12/14 12/09/15 Shaheen Mcgregor MD PCP - General Family Medicine 12/10/15 09/07/21 Unknown Pcp, Non [facility] PCP - General 09/08/21 Seth Strauss MD 12/12/14 documented as of this encounter
== END 2024-12-01 11:35 | disposition home or self-care (01) ==
LOC: HO.XRAY 11:34
PROVIDERS: PCP Nurse Practitioner; Visit Provider Physical Medicine & Rehabilitation
DX: M54.12 Radiculopathy, cervical region (principal); M54.2 Cervicalgia
CPT/HCPCS: 72052; 73030

== ENCOUNTER → 2024-12-01 11:51 | Outpatient (BNV) | payer OTHER, SELFPAY | PROVIDERS: PCP Nurse Practitioner; Visit Provider Radiology Diagnostic Radiology | DX: M47.812 Spondylosis without myelopathy or radiculopathy, cervical region (principal); S46.911A Strain of unspecified muscle, fascia and tendon at shoulder and upper arm level, right arm, initial encounter | CPT/HCPCS: 72052; 73030 ==

== ENCOUNTER 2024-12-15 08:37 | Outpatient (REF) | payer OTHER, SELFPAY ==
--- NOTE | ~2024-12-15 | XR_ITS ---
CLINICAL HISTORY: PAIN IN LEFT KNEE Exam: AP, lateral, tunnel, and sunrise views of the left knee. Comparison: None. Findings: Bony alignment is anatomic. No fracture or joint effusion. 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 Medial and lateral compartments are well-maintained. Impression: No acute findings. Patellofemoral joint DJD. This document has been electronically signed by: Pito Redd MD on 12/16/2024 08:41:18
--- OUTSIDE RECORDS SUMMARY | 2024-12-15 08:50 | XMS_ITS | Encounter Summary ---
Author Organization [facility] Address [address] [place] [address] Care Team Providers Care Political Science Faculty Member Name Role Phone Seth Strauss MD Unavailable [phone] Shaheen Mcgregor MD Primary Care Provider Unavailab le Unknown Pcp, Non [facility] Primary Care Provider Unava ilable Encounter Details Date Type Department Care Team (Late st Contact Info) Description 09/01/2016 Orders Only [facility] [address] [place] [id number] Lillie Simpson MD [address] [place] [id number] Social History Tobacco Use Types Packs/Day Years [...] CULTURE, URINE, ROUTINE (09/01/2016 12:17 PM EST) [place] count (Urine) >10,000-<50,00 0 CFU/ml [facility] Bacteria culture (Urine) Mixed Culture, 3 or more organisms present. Repeat if Clinically Indicated.(A) No Growth [facility] 09/01/2016 12:1 7 PM EST 09/01/2016 12:17 PM EST Narrative [facility] - 09/04/2016 9:01 AM EST Patient's primary care provider is: ??N/A Testing performed at: [facility], [address] [place] [address], [id number], Human Resources Records Clerk: Chepe Lopez M.D. Lillie [place] MD LABORATORY Final Resul t [address] [address] DIRECTOR CHEPE LOPEZ M.D. * (ABNORMAL) URINALYSIS, [...] AM EST 09/01/2016 10:57 AM EST Narrative [facility] - 09/01/2016 11:31 AM EST Patient's primary care provider is: ??N/A STAT results called to POOL on 09/01/2016 at 11:31 AM by LIZ. Testing performed at: [facility], [address] [place] [address], [address], Human Resources Records Clerk: Cheep Lopez M.D. Lillie Simpson MD LABORATORY Final Resul t Performing Organization Address [facility] de Phone Number [address] [address] DIRECTOR CHEPE LOPEZ M.D. * (ABNORMAL) VITAMIN D, 25-HYDROXY, TOTAL, IMMUNOASSAY (09/01/2016 10:57 AM EST) VIT D, 25-OH, TOTAL 23(L) >29 ng/mL [facility] Comment: Vitamin D Status ??25-OH Vitamin D: Deficiency: ? <20 ng/mL Insufficiency: ? 20-29 ng/mL Optimal: ?> or = 30 ng/mL 09/01/2016 10:5 7 AM EST 09/01/2016 10:57 AM EST Narrative [facility] - 09/01/2016 12:48 PM EST Patient's primary care provider is: ??N/A Testing performed at: [facility], [address] [place] [address], [address], Human Resources Records Clerk: Chepe Lopez M.D. us Lillie [place] MD LABORATORY Final Resul t Performing Organization Address [facility] de Phone Number [address] [address] DIRECTOR CHEPE LOPEZ M.D. * (ABNORMAL) URINALYSIS, [...] AM EST 09/01/2016 10:57 AM EST Narrative [facility] - 09/01/2016 11:13 AM EST Patient's primary care provider is: ??N/A STAT results called to POOL on 09/01/2016 at 11:13 AM by LIZ. Source: Urine Testing performed at: [facility], [address] [place] [address], [id number], Human Resources Records Clerk: Chepe Lopez M.D. us Lillie [place] MD LAB SAME DAY RESULT Final R esult [address] [address] DIRECTOR CHEPE LOPEZ M.D. * RHEUMATOID FACTOR, SERUM (09/01/2016 10:54 AM EST) Rheumatoid Factor (Quant) 10 <14 IU/mL [facility] 09/01/2016 10:5 4 AM EST 09/01/2016 3:39 PM EST Narrative Resulting Agency Comment [id number] Lillie [place] MD LABORATORY Final Resul t [facility] [address] [place] [address] documented in this encounter Visit Diagnoses Diagnosis Urinary frequency Hip pain, bilateral Pain in joint, pelvic region and thigh documented in this encounter Care Teams Political Science Faculty Member Relationship Specialty Start Date End Date Shaheen Mcgregor MD PCP - General Family Medicine 12/10/15 09/07/21 Unknown Pcp, Non [facility] PCP - General 09/08/21 Seth Strauss MD 12/12/14 documented as of this encounter
== END 2024-12-15 08:38 | disposition home or self-care (01) ==
LOC: HO.XRAY 08:37
PROVIDERS: PCP Nurse Practitioner; Visit Provider Physical Medicine & Rehabilitation
DX: M25.562 Pain in left knee (principal)
CPT/HCPCS: 73564

== ENCOUNTER → 2024-12-15 08:43 | Outpatient (BNV) | payer OTHER, SELFPAY | PROVIDERS: PCP Nurse Practitioner; Visit Provider Radiology Diagnostic Radiology | DX: M17.12 Unilateral primary osteoarthritis, left knee (principal) | CPT/HCPCS: 73564 ==